=== PATIENT | male | born 1985 | race Two or more races ===

== ENCOUNTER 2017-01-22 01:39 | Emergency (ER) | payer SELFPAY ==
[2017-01-22 01:47] VITALS: BP 139/85
[2017-01-22] MEDS ORDERED: Ibuprofen TAB* 800 MG PO ONE (01:52)
--- NOTE | 2017-01-22 02:27 | ED ---
Kana Wang Aidan, scribed for Sakshi Sargentuel on 01/22/17 at 0200 . Upper Extremity Pain - HPI Summary HPI Summary: 31 y/o male presents to the ED with acute, constant, moderate right ring finger pain that resulted from him jamming his right ring finger at 0121 this morning. His finger appears extremely crooked and very likely broken. There are no other associated symptoms or altering factors. - History of Current Complaint Chief Complaint: EDExtremityUpper Stated Complaint: LT RING FINGER INJURY Time Seen by Provider: 01/22/17 01:50 Hx Obtained From: Patient Mechanism Of Injury: Direct Blow - jammed finger Onset/Duration: Started Minutes Ago - at 0121 Timing: Constant Severity Initially: Moderate Severity Currently: Moderate Pain Location: Finger - right ring finger Character: Aching Aggravating Factor(s): Other - unknown Alleviating Factor(s): Other - unknown Associated Signs & Symptoms: Positive: Negative - Risk Factors DVT Risk Factors: Smoking - Allergies/Home Medications Allergies/Adverse Reactions: Allergies Allergy/AdvReac Type Severity Reaction Status Date / Time No Known Allergies Allergy Verified 12/29/16 05:21 PMH/Surg Hx/FS Hx/Imm Hx Endocrine/Hematology History: Denies: Hx Diabetes Cardiovascular History: Denies: Hx Hypertension, Hx Pacemaker/ICD History: Denies: Hx Renal Disease Sensory History: Denies: Hx Hearing Aid Psychiatric History: Denies: Hx Panic Disorder - Surgical History Surgery Procedure, Year, and Place: Rt SHOULDER - LABRAL TEAR REPAIR- 03/2015 Infectious Disease History: No Infectious Disease History: Denies: Hx Clostridium Difficile, Hx Hepatitis, Hx Human Immunodeficiency Virus (HIV), Hx of Known/Suspected MRSA, Hx Shingles, Hx Tuberculosis, Hx Known/ Suspected VRE, Hx Known/Suspected VRSA, History Other Infectious Disease, Traveled Outside the [place] in Last 30 Days - Family History Known Family History: Positive: Diabetes - father Family History: NON-CONTRIBUTORY - Social History Occupation: Unemployed Lives: Alone Alcohol Use: Rare Substance Use Type: Reports: None Hx Tobacco Use: Yes Smoking Status (MU): Light Every Day Tobacco Smoker Amount Used/How Often: 2-3 cigs daily Review of Systems Constitutional: Negative Eyes: Negative ENT: Negative Cardiovascular: Negative Respiratory: Negative Gastrointestinal: Negative Genitourinary: Negative Positive: Arthralgia - right ring finger pain S/P break due to jamming the finger Skin: Negative Neurological: Negative Psychological: Normal All Other Systems Reviewed And Are Negative: Yes Physical Exam Triage Information Reviewed: Yes Vital Signs On Initial Exam: Initial Vitals Temp Pulse Resp BP Pulse Ox 98.5 F 96 16 139/85 95 01/22/17 01:45 01/22/17 01:45 01/22/17 01:45 01/22/17 01:45 01/22/17 01:45 Vital Signs Reviewed: Yes Appearance: Positive: Well-Appearing, No Pain Distress Skin: Positive: Warm, Skin Color Reflects Adequate Perfusion, Dry Head/Face: Positive: Normal Head/Face Inspection Eyes: Positive: EOMI, TEN ENT: Positive: Normal ENT inspection Neck: Positive: Supple, Nontender Respiratory/Lung Sounds: Positive: Clear to Auscultation, Breath Sounds Present Cardiovascular: Positive: Normal, RRR, Pulses are Symmetrical in both Upper and Lower Extremities Abdomen Description: Positive: Nontender, Soft Bowel Sounds: Positive: Present Musculoskeletal: Positive: Other - tenderness over the right 4th finger, distal phalynx, no nv deficit Neurological: Positive: Normal, Sensory/Motor Intact, Alert, Oriented to Person Place, Time Psychiatric: Positive: Normal, Affect/Mood Appropriate AVPU Assessment: Alert Diagnostics - Vital Signs Vital Signs Temp Pulse Resp BP Pulse Ox 01/22/17 01:45 98.5 F 96 16 139/85 95 - Laboratory Lab Statement: Any lab studies that have been ordered have been reviewed, and results considered in the medical decision making process. - Radiology FINGER XR Xray Interpretation: Positive (See Comments) - IMPRESSION: contusion of the 4th finger on the right hand. No visible fracture is noted Radiology Interpretation Completed By: ED Physician - Dr. Sargent Course/Dx - Course Course Of Treatment: 31 y/o male presents with pain at the 4th finger on his right hand. The finger appears broken. Radiology revealed a contusion to the 4th finger on the right hand. There was no visible fracture. - Diagnoses Provider Diagnoses: contusion of the 4th finger, right hand Discharge - Discharge Plan Condition: Stable Disposition: HOME Discharge Disposition Comment: Please follow up with orthopedics within 3 days. Prescriptions: Ibuprofen TAB* [Motrin TAB* 600 MG] 600 mg PO Q8H PRN #20 tab PRN Reason: Pain Referrals: Shalom Anderson MD [Primary Care Provider] - Ronak Alegre MD [Medical Doctor] - The documentation as recorded by the Kana marquis Aidan accurately reflects the service I personally performed and the decisions made by me, Kevin Sargent.
--- NOTE | 2017-01-22 09:34 | RAD ---
Indication: Right fourth finger injury. 3 views of the fourth digit demonstrates tiny bony fragment at the dorsal aspect of the interphalangeal joint of the fourth digit. Tiny avulsion is not excluded. IMPRESSION: In the dorsal distal interphalangeal joint with small avulsion cannot BE excluded.
== END 2017-01-22 02:26 | disposition home or self-care (01) ==
LOC: ED 01:39
DX: S60.041A Contusion of right ring finger without damage to nail, initial encounter (principal); W22.8XXA Striking against or struck by other objects, initial encounter; Y93.9 Activity, unspecified; Y92.9 Unspecified place or not applicable; Y99.9 Unspecified external cause status
CPT/HCPCS: 73140; 99282; A9270-GY

== ENCOUNTER 2019-09-06 20:23 | Emergency (ER) | payer SELFPAY ==
[2019-09-06 20:38] VITALS: BP 123/79
[2019-09-06] MEDS ORDERED: Amoxicillin PO (*) 500 MG CAP PO ONE (20:46)
--- NOTE | 2019-09-06 20:46 | UC ---
Throat Pain/Nasal Luc HPI - HPI Summary HPI Summary: 34-year-old male presents with complaints of 2 day history of sore throat, headache, general malaise, chills, fatigue, and body aches. No measured fever. Reports significant other was recently diagnosed with strep throat. Denies ear pain, nasal congestion, dysphagia, cough, chest pain, shortness of breath, abdominal pain, nausea, or vomiting. - History of Current Complaint Chief Complaint: UCGeneralIllness Stated Complaint: FLU SYMPTOMS Time Seen by Provider: 09/06/19 20:30 Hx Obtained From: Patient Pain Intensity: 0 - Allergies/Home Medications Allergies/Adverse Reactions: Allergies Allergy/AdvReac Type Severity Reaction Status Date / Time No Known Allergies Allergy Verified 09/06/19 20:38 PMH/Surg Hx/FS Hx/Imm Hx Previously Healthy: Yes - Surgical History Surgical History: Yes Surgery Procedure, Year, and Place: Rt SHOULDER - LABRAL TEAR REPAIR- 03/2015 - Family History Known Family History: Positive: Diabetes - father Family History: NON-CONTRIBUTORY - Social History Lives: Alone Alcohol Use: Rare Substance Use Type: Marijuana Substance Use Comment - Amount & Last Used: weekly Smoking Status (MU): Former Smoker Amount Used/How Often: 2-3 cigs daily Review of Systems All Other Systems Reviewed And Are Negative: Yes Constitutional: Positive: Chills, Fatigue Skin: Negative: Rash Eyes: Negative: Drainage, Eye Redness ENT: Positive: Sore Throat. Negative: Ear Ache, Nasal Discharge, Sinus Congestion, Sinus Pain/Tenderness Respiratory: Negative: Shortness Of Breath, Cough Cardiovascular: Negative: Chest Pain Gastrointestinal: Negative: Abdominal Pain, Vomiting, Diarrhea, Nausea Genitourinary: Positive: Negative Musculoskeletal: Positive: Myalgia Neurological: Positive: Headache Is Patient Immunocompromised?: No Physical Exam - Summary Physical Exam Summary: GENERAL APPEARANCE: Well developed, well nourished, alert and cooperative, and appears to be in no acute distress. EYES: Conjunctiva clear. No drainage. EARS: External auditory canals and tympanic membranes clear, hearing grossly intact. NOSE: No nasal discharge. THROAT: Pharyngeal erythema. 2+ with exudate. Uvula midline. NECK: Neck supple, non-tender. Mild anterior cervical lymphadenopathy. CARDIAC: Normal S1 and S2. No S3, S4 or murmurs. Rhythm is regular. There is no peripheral edema, cyanosis or pallor. Extremities are warm and well perfused. Capillary refill is less than 2 seconds. Peripheral pulses intact. LUNGS: Clear to auscultation without rales, rhonchi, wheezing or diminished breath sounds. ABDOMEN: Positive bowel sounds. Soft, nondistended, nontender. No guarding or rebound. No masses or hepatosplenomegally. MUSKULOSKELETAL: ROM intact to all extremities. No joint erythema or tenderness. Normal muscular development. Normal gait. SKIN: Skin normal color, texture and turgor with no lesions or eruptions. Triage Information Reviewed: Yes Vital Signs: Initial Vital Signs Temp 99.5 F 09/06/19 20:34 Pulse 90 09/06/19 20:34 Resp 18 09/06/19 20:34 BP 123/79 09/06/19 20:34 Pulse Ox 96 09/06/19 20:34 Vital Signs Reviewed: Yes Throat Pain/Nasal Course/Dx - Course Course Of Treatment: 34-year-old male presents with complaints of 2 day history of sore throat, headache, general malaise, chills, fatigue, and body aches. No measured fever. Reports significant other was recently diagnosed with strep throat. Denies ear pain, nasal congestion, dysphagia, cough, chest pain, shortness of breath, abdominal pain, nausea, or vomiting. Afebrile. Vital signs stable. Patient hand pharyngeal erythema with 2+ tonsils with exudate, mild cervical lymphadenopathy, and otherwise unremarkable exam. Rapid strep test was positive. Reviewed results with the patient however patient also requested flu testing which was negative. Will treat for strep pharyngitis with amoxicillin 500 mg twice a day 10 days as well as recommend symptomatic treatment. First dose was given in the clinic. He is to return here or follow up with his primary care provider in 3-5 days if symptoms are not improving. Anticipatory guidance and warning symptoms were reviewed with the patient. Verbalizes understanding and agrees with plan of care. - Differential Dx/Diagnosis Differential Diagnosis/HQI/PQRI: Mononucleosis, Peritonsillar Abscess, Pharyngitis, Tonsillitis, URI Provider Diagnosis: Strep pharyngitis Discharge ED - Sign-Out/Discharge Documenting (check all that apply): Patient Departure All imaging exams completed and their final reports reviewed: No Studies - Discharge Plan Condition: Stable Disposition: HOME Prescriptions: Amoxicillin PO (*) [Amoxicillin 500 MG CAP*] 500 mg PO Q12H #19 cap Patient Education Materials: Strep Throat (ED) Referrals: No Primary Care Phys,NOPCP [Primary Care Provider] - Additional Instructions: Your rapid strep test in the clinic today was positive. We will start you on an antibiotic to treat the infection. A rapid flu test was negative. Start amoxicillin 500 mg 1 cap every 12 hours for 10 days. You were given the first dose in the clinic tonight. Be sure to complete the entire course even if feeling better. After you have been on antibiotics for 3 days, throw out your toothbrush and replace with a new one to prevent reinfection. Drink plenty of fluids to avoid dehydration especially if you are running any fever. Use salt water gargles several times a day. Take over the counter acetaminophen (Tylenol) or ibuprofen (Advil, Motrin) according to directions as needed for pain or fever. You may also use Chloraseptic spray or Cepacol lonzenges according to directions which contain a numbing medication and can provide some temporary relief from your sore throat. Return here or follow up with your primary care provider in 3-5 days if symptoms do not improve. Seek immediate medical attention in the emergency room if you have fever greater than 100.5 F despite taking acetaminophen or ibuprofen, are unable to swallow or develop drooling, are unable to open your mouth fully, are unable to eat or drink, have pain that is not relieved with over the counter pain medication, have any difficulty breathing, or any worsening of symptoms. - Billing Disposition and Condition Condition: STABLE Disposition: Home
[2019-09-06 21:08] LABS: Influenza A Molecular NEGATIVE (Negative); Influenza B Molecular NEGATIVE (Negative)
== END 2019-09-06 21:17 | disposition home or self-care (01) ==
LOC: UCEAST 20:23
DX: J02.0 Streptococcal pharyngitis (principal); R51 Headache; R53.81 Other malaise; Z87.891 Personal history of nicotine dependence
CPT/HCPCS: 87651; 99212; A9270-GY; G0463